=== PATIENT | male | born 1930 | race Caucasian/White ===

== ENCOUNTER 2017-01-11 18:21 | Inpatient (IN) | payer MEDICAID, MEDICARE ==
[~2017-01-11] VITALS: Ht 182.9 cm; Wt 80.3 kg
[~2017-01-11 18:21] MED LIST: ACET650T11 PO; ALBU2.5V13 HHN; ALLO100T PO; ASCO500C16 PO; ASPI81TA31 PO; BENZ1LOZ PO; BISA10SU8 RC; BLOO-125 IN; CHOL10005 PO; COLC0.6T2 PO; DIGO125T PO; DOCU-25 PO; FENT1PAT4 TP; FOLI1TAB16 PO; GABA400C PO; INSU100V7 SQ; LIDO30AD10 TD; MAGN400T6 PO; MEGE400O PO; MULT1TAB11 PO; OXYC-128 PO; OXYC1TAB PO; PANT40TA2 PO; POLY15DR27 EACHEYE; PROBIOTIC1 EACH PO; RIVA20TA PO; SIMV40TA5 PO; ZOLP5TAB2 PO
--- NOTE | 2017-01-11 19:00 | NUR ---
Pt bib for abnormal labs, pt is awake, oriented x 1 (to name only), pt is confused, non ambulatory, incontinent of bladder and bowel... no respt distress noted or reported upon assessment... md at bedside..
[2017-01-11 19:19] LABS: BASOPHILS % (AUTO) 0.3 % (0.0-2.0); EOSINOPHILS # (AUTO) 0.2 K/uL (0.0-0.7); EOSINOPHILS % (AUTO) 2.3 % (0.0-7.0); LYMPHOCYTES # (AUTO) 1.6 K/UL (0.8-4.8); LYMPHOCYTES % (AUTO) 15.9 % (20.5-51.5); MEAN CORPUSCULAR HGB CONC 32 g/dL (32.0-37.0); MEAN CORPUSCULAR VOLUME 75.6 FL (82.0-92.0); MONOCYTES # (AUTO) 0.8 K/UL (0.1-1.30); NEUTROPHILS # (AUTO) 7.2 K/UL (1.8-8.9); NEUTROPHILS % (AUTO) 73.5 % (38.5-71.5); PLATELET COUNT (AUTO) 308 K/UL (150-450); RED BLOOD CELL COUNT(AUTO) 2.86 MIL/UL (4.7-6.1); WHITE BLOOD COUNT (AUTO) 9.8 K/UL (4.0-11.2)
[2017-01-11 19:24] LABS: HEMATOCRIT 21.6 % (40-50)
[2017-01-11 19:25] LABS: HEMOGLOBIN 6.9 G/DL (14.0-18.0)
[2017-01-11] MEDS ORDERED: CRAN500C3 PO (19:29)
[2017-01-11] MEDS ORDERED: RIVA15TA2 PO (19:29)
[2017-01-11] MEDS ORDERED: DULO20CA PO (19:29)
[2017-01-11] MEDS ORDERED: ATOR10TA PO (19:29)
[2017-01-11] MEDS ORDERED: MULT1TAB11 PO (19:29)
[2017-01-11] MEDS ORDERED: LACT10SO6 PO (19:29)
[2017-01-11] MEDS ORDERED: FURO-151 PO (19:29)
[2017-01-11] MEDS ORDERED: AMIN30LI27 PO (19:29)
[2017-01-11] MEDS ORDERED: CARV6.252 PO (19:29)
[2017-01-11] MEDS ORDERED: TRAM50TA2 PO (19:29)
[2017-01-11] MEDS ORDERED: IPRA0.2S6 NEB (19:29)
[2017-01-11] MEDS ORDERED: FERR-58 PO (19:29)
[2017-01-11] MEDS ORDERED: OXYC-128 PO (19:29)
[2017-01-11 19:39] LABS: ALANINE AMINOTRANSFERASE 29 U/L (16-63); ALKALINE PHOSPHATASE 98 U/L (50-136); ASPARTATE AMINOTRANSFERASE 36 U/L (15-37); BILIRUBIN,DIRECT 0.1 mg/dL (0.0-0.2); BILIRUBIN,TOTAL 0.4 mg/dL (0.2-1.0); CARBON DIOXIDE 33 mmol/L (21-32); CHLORIDE 103 mmol/L (98-107); CREATININE 1.1 mg/dL (0.6-1.3); GLUCOSE 107 mg/dL (74-106); POTASSIUM 4.4 mmol/L (3.5-5.1); TOTAL PROTEIN, SERUM 6.4 g/dL (6.4-8.2); UREA NITROGEN, BLOOD 48 mg/dL (7-18)
[2017-01-11] MEDS ORDERED: FUROSEMIDE 20 MG/2 ML VIAL IV ONE (20:00)
[2017-01-11 20:31] LABS: EOSINOPHILS % (MANUAL) 1 % (0-8); LYMPHOCYTES % (MANUAL) 17 % (20-40); MONOCYTES % (MANUAL) 6 % (2-10); NEUTROPHILS % (MANUAL) 76 % (42-75)
--- NOTE | 2017-01-11 20:47 | NUR ---
[facility] operator (tonja) Dr. Pretty Shankar to be paged...
--- NOTE | 2017-01-11 21:28 | NUR ---
2nd call to [facility], engineering operator states cell phone going straight to v/m, states will have DR. Hedrick paged 2nd time...
[2017-01-11] MEDS ORDERED: FUROSEMIDE 40 MG/4 ML VIAL ONE (22:14)
[2017-01-11 22:15] VITALS: BP 102/58
--- NOTE | 2017-01-11 22:19 | NUR ---
received call from Kimberly with [facility], requesting status, advised pt being admitted for CHF...
--- NOTE | 2017-01-11 22:20 | NUR ---
Pt. admitted to Telemetry , under care of Dr. Shankar, Belongs List completed, pt is awake, confused, oriented x 1(name only), pt transferred via gurney... no resp distress noted or reported upon transfer assessment...
--- NOTE | 2017-01-11 23:20 | NUR ---
In from ER via [facility], 86 y/o male patient w/ admitting diagnosis of CHF (BNP= 7,448) & Anemia (H/H 6.9 & 21.6). Placed on Telemetry, V-pacing on the monitor. Vital signs are WNL. Initial assessment done. Called Dr. Shankar for admission order received orders & carried out. NPO including meds for now, for further eval in AM. Will continue to monitor.
[2017-01-12] VITALS (16 sets, daily range): BP systolic 100–141; BP diastolic 52–61
[2017-01-12] MEDS ORDERED: FUROSEMIDE 20 MG/2 ML VIAL ONE ×2 (00:35→00:37)
--- NOTE | 2017-01-12 00:40 | NUR ---
1st unit of PRBC started. Monitored for transfusion reaction but none noted. Patient resting comfortably. V-paced on the monitor w/ HR 83.
[2017-01-12] MEDS: FUROSEMIDE 20 MG/2 ML VIAL IV PRN ×2 (02:26→06:42)
[2017-01-12] MEDS: Z GUARD REMEDY PASTE 57 GM TUBE TOP SCH ×2 (02:30→20:56)
--- NOTE | 2017-01-12 02:59 | NUR ---
Patient remains awake at this time. 1st unit PRBC completed. vital signs are WNL. No significant change.
--- NOTE | 2017-01-12 03:02 | NUR ---
Lasix 20 mg IVP adm
--- NOTE | 2017-01-12 03:34 | NUR ---
2nd unit PRBC started. Patient more awake at this time.
--- NOTE | 2017-01-12 06:47 | NUR ---
2 units PRBC completed. Lasix 20mg IVP adm. as ordered. Tele V-paced w/ HR 78. No acute resp distress.
--- NOTE | 2017-01-12 07:30 | NUR ---
Seen by Dr. Mariee. Putting comp. orders at this time.
[2017-01-12] MEDS ORDERED: IPRATROPIUM BROMIDE 0.5 MG/2.5 ML NEBU NEB PRN (07:45)
[2017-01-12] MEDS: ATORVASTATIN 10 MG TABLET PO SCH ×2 (07:45→20:57)
[2017-01-12] MEDS ORDERED: BISACODYL 10 MG SUPP.RECT RC PRN (07:45)
[2017-01-12] MEDS ORDERED: ALBUTEROL SULFATE 2.5 MG/ 0.5 ML NEBU INH PRN (07:45)
[2017-01-12] MEDS ORDERED: BLOOD SUGAR DIAGNOSTIC 1 EACH STRIP VI SCH (07:45)
[2017-01-12] MEDS ORDERED: DEXTROSE 50% 50 ML DISP.SYRIN IV PRN (08:00)
[2017-01-12] MEDS: INSULIN DETEMIR 300 UNIT/3 ML CARTRIDGE SQ SCH (08:10)
[2017-01-12] MEDS ORDERED: LACTULOSE 20 G/30 ML LIQUID UDC PO PRN (08:30)
[2017-01-12] MEDS ORDERED: ASPIRIN 81 MG TAB.CHEW PO SCH (09:00)
[2017-01-12] MEDS: CARVEDILOL 6.25 MG TABLET PO SCH ×2 (09:00→19:06)
[2017-01-12] MEDS: DULOXETINE 20 MG CAPSULE.DR PO SCH (09:00)
[2017-01-12] MEDS: MAGNESIUM OXIDE 400 MG TABLET PO SCH (09:00)
[2017-01-12] MEDS: DOCUSATE SODIUM 100 MG CAPSULE PO SCH ×2 (09:00→19:04)
[2017-01-12] MEDS: GABAPENTIN 400 MG CAPSULE PO SCH ×3 (09:00→19:06)
[2017-01-12] MEDS: PANTOPRAZOLE SODIUM 40 MG TABLET.DR PO SCH (09:00)
[2017-01-12] MEDS: FERROUS SULFATE 325 MG TABEC PO SCH ×3 (09:00→19:06)
[2017-01-12] MEDS: FOLIC ACID 1 MG TABLET PO SCH (09:00)
[2017-01-12] MEDS: FUROSEMIDE 40 MG TABLET PO SCH ×2 (09:00→13:54)
[2017-01-12] MEDS ORDERED: PANTOPRAZOLE SODIUM 40 MG VIAL IV SCH (09:00)
[2017-01-12 09:04] LABS: BASOPHILS % (AUTO) 0.3 % (0.0-2.0); EOSINOPHILS # (AUTO) 0.2 K/uL (0.0-0.7); EOSINOPHILS % (AUTO) 1.7 % (0.0-7.0); HEMATOCRIT 32.4 % (40-50); HEMOGLOBIN 10.4 G/DL (14.0-18.0); LYMPHOCYTES # (AUTO) 1.8 K/UL (0.8-4.8); MEAN CORPUSCULAR HEMOGLOBIN 24.7 UUG (27.0-31.0); MEAN CORPUSCULAR HGB CONC 32 g/dL (32.0-37.0); MEAN CORPUSCULAR VOLUME 77.2 FL (82.0-92.0); MONOCYTES % (AUTO) 8.1 % (0.0-11.0); NEUTROPHILS # (AUTO) 9.6 K/UL (1.8-8.9); NEUTROPHILS % (AUTO) 75.9 % (38.5-71.5); PLATELET COUNT (AUTO) 303 K/UL (150-450); WHITE BLOOD COUNT (AUTO) 12.6 K/UL (4.0-11.2)
--- NOTE | 2017-01-12 09:30 | NUR ---
LAB CALLED--BS=46. PT. EASILY AROUSABLE--OJ WITH SUGAR GIVEN. DR. RATLIFF HERE AND NOTIFIED OF ABOVE. RECHECK DONE 0945=51. NOTIFIED, ADDITIONAL JUICE GIVEN. RECHECK DONE=76. RECHECK ANTU=518. DR. RATLIFF NOTIFIED
[2017-01-12 09:44] LABS: ALANINE AMINOTRANSFERASE 27 U/L (16-63); ALKALINE PHOSPHATASE 100 U/L (50-136); ASPARTATE AMINOTRANSFERASE 43 U/L (15-37); BILIRUBIN,TOTAL 1.4 mg/dL (0.2-1.0); CARBON DIOXIDE 35 mmol/L (21-32); CHLORIDE 103 mmol/L (98-107); CREATININE 1.1 mg/dL (0.6-1.3); MAGNESIUM 2.2 mg/dL (1.8-2.4); PHOSPHOROUS 4.2 mg/dL (2.5-4.9); POTASSIUM 4.6 mmol/L (3.5-5.1); TOTAL PROTEIN, SERUM 6.7 g/dL (6.4-8.2); UREA NITROGEN, BLOOD 45 mg/dL (7-18)
[2017-01-12 10:07] LABS: GLUCOSE 46 mg/dL (74-106)
[2017-01-12 10:30] LABS: BAND % (MANUAL) 3 % (0-10); EOSINOPHILS % (MANUAL) 3 % (0-8); LYMPHOCYTES % (MANUAL) 12 % (20-40); MONOCYTES % (MANUAL) 10 % (2-10); NEUTROPHILS % (MANUAL) 72 % (42-75)
[2017-01-12] MEDS: BLOOD SUGAR DIAGNOSTIC 1 EACH STRIP VI SCH ×3 (11:00→21:08)
--- NOTE | 2017-01-12 12:51 | NUR ---
WOUND CARE CONSULT: PT PRESENTS WITH RT AND LEFT MEDIAL FOOT STAGE II ULCERS, PRESENT ON ADMISSION. PT INCONTINENT AND NOTED TO HAVE HUGE STOOL. SPECIMEN SENT TO LAB BY RN. PT NOTED TO HAVE 2+ PITTING EDEMA TO FEET/ANKLE AREAS AND SCROTAL EDEMA NOTED. 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 MARY SCORE IS 12. FIRST STEP MATTRESS TO BE PLACED. PT TO BE TURNED AND REPOSITIONED EVERY 2 HRS PT CONDITION PERMITS, HEELS FLOATED. ALL SKIN PROTECTION AND WOUND RECOMMENDATIONS DISCUSSED WITH NURSING STAFF. WILL SEE PRN. RODRIGUEZ IN AGREEMENT WITH PLAN OF CARE. Addendum: 01/12/17 at 1254 by DILLAN RAY RN Amended: Links added.
[2017-01-12] MEDS: LIDOCAINE 5% PATCH TD SCH (13:53)
[2017-01-12] MEDS: DIGOXIN 125 MCG TABLET PO SCH (13:57)
[2017-01-12 17:22] LABS: *BILIRUBIN,URIN NEGATIVE (NEGATIVE); *BLOOD, URINE 2+ (NEGATIVE); *CLARITY,URINE CLOUDY (CLEAR); *COLOR,URINE YELLOW (YELLOW); *KETONES,URINE NEGATIVE (NEGATIVE); *PROTEIN,URINE TRACE (NEGATIVE); *UROBILINOGEN,URINE 0.2 E.U./dl (NORMAL); LEUKOCYTE ESTERASE ,URINE 3+ (NEGATIVE); NITRITE, URINE NEGATIVE (NEGATIVE); PH,URINE 5.5 (5.0-8.0); UGLUCOSE NEGATIVE (NEGATIVE)
[2017-01-12 17:23] LABS: *OCCULT BLOOD STOOL POSITIVE (NEGATIVE)
[2017-01-12 17:30] LABS: BACTERIA,URINE MA /HPF (NONE SEEN); SQUAMOUS EPITHELIAL CELL,UR FEW /HPF (NONE SEEN); WBC,URINE TNTC /HPF (0-3)
[2017-01-12] MEDS: FUROSEMIDE 20 MG/2 ML VIAL IV SCH (20:56)
[2017-01-12] MEDS: TRAMADOL HCL 50 MG TABLET PO PRN (20:57)
[2017-01-13 00:13] VITALS: BP 102/63
[2017-01-13 00:25] LABS: FERRITIN 26 ng/mL (26-388)
[2017-01-13 04:00] VITALS: BP 125/62
--- NOTE | 2017-01-13 04:00 | NUR ---
Continuos to urinate a lot, incontinence care provided, kept comfortable. Wound care PRN done.
[2017-01-13] MEDS: PANTOPRAZOLE SODIUM 40 MG TABLET.DR PO SCH (05:47)
[2017-01-13] MEDS: BLOOD SUGAR DIAGNOSTIC 1 EACH STRIP VI SCH ×4 (06:55→20:27)
[2017-01-13 06:58] LABS: BASOPHILS % (AUTO) 0.2 % (0.0-2.0); EOSINOPHILS # (AUTO) 0.3 K/uL (0.0-0.7); EOSINOPHILS % (AUTO) 2.5 % (0.0-7.0); HEMATOCRIT 33.3 % (40-50); HEMOGLOBIN 10.7 G/DL (14.0-18.0); LYMPHOCYTES # (AUTO) 1.7 K/UL (0.8-4.8); LYMPHOCYTES % (AUTO) 12.9 % (20.5-51.5); MEAN CORPUSCULAR HEMOGLOBIN 24.8 UUG (27.0-31.0); MEAN CORPUSCULAR HGB CONC 32 g/dL (32.0-37.0); MEAN CORPUSCULAR VOLUME 77.2 FL (82.0-92.0); MONOCYTES % (AUTO) 7.5 % (0.0-11.0); NEUTROPHILS # (AUTO) 9.9 K/UL (1.8-8.9); NEUTROPHILS % (AUTO) 76.9 % (38.5-71.5); PLATELET COUNT (AUTO) 308 K/UL (150-450); RED BLOOD CELL COUNT(AUTO) 4.31 MIL/UL (4.7-6.1); WHITE BLOOD COUNT (AUTO) 12.9 K/UL (4.0-11.2)
--- NOTE | 2017-01-13 06:59 | NUR ---
Patient rested well & awake at this time. Morning accucheck showed 50. Patient is asymptomatic, responsive verbally. On strict fluid intake for CHF issues. Half cup Newcomb juice provided followed by D50 1 amp adm IVP. Re-checked blood sugar accu check- shows 185. Will continue to monitor.
--- NOTE | 2017-01-13 07:03 | NUR ---
Patient watching TV at this time. Telemetry V-paced on the monitor.
[2017-01-13 07:17] LABS: MAGNESIUM 2.1 mg/dL (1.8-2.4)
[2017-01-13] MEDS: INSULIN DETEMIR 300 UNIT/3 ML CARTRIDGE SQ SCH (08:00)
--- NOTE | 2017-01-13 08:00 | NUR ---
AWAKE COOPERATE WELL NO RESPIRATORY DISTRESS CONTINUER O2 AT 2-3 LITER/MIN O2 SAT WAS 96% NO PAIN ON FALL /ASPIRATION PRECAUTION BED ALARM ON AND CALL CRUZ IN REACH
[2017-01-13] MEDS: MAGNESIUM OXIDE 400 MG TABLET PO SCH (08:24)
[2017-01-13] MEDS: FERROUS SULFATE 325 MG TABEC PO SCH ×3 (08:24→17:26)
[2017-01-13] MEDS: DULOXETINE 20 MG CAPSULE.DR PO SCH (08:24)
[2017-01-13] MEDS: FUROSEMIDE 20 MG/2 ML VIAL IV SCH (08:24)
[2017-01-13] MEDS: DOCUSATE SODIUM 100 MG CAPSULE PO SCH ×2 (08:24→17:26)
[2017-01-13] MEDS: GABAPENTIN 400 MG CAPSULE PO SCH ×3 (08:24→17:26)
[2017-01-13] MEDS: Z GUARD REMEDY PASTE 57 GM TUBE TOP SCH ×2 (08:25→20:28)
[2017-01-13] MEDS: FOLIC ACID 1 MG TABLET PO SCH (08:26)
[2017-01-13] MEDS: CARVEDILOL 6.25 MG TABLET PO SCH ×2 (08:31→17:00)
[2017-01-13] MEDS: LIDOCAINE 5% PATCH TD SCH (08:31)
[2017-01-13 10:08] LABS: BAND % (MANUAL) 5 % (0-10); EOSINOPHILS % (MANUAL) 1 % (0-8); LYMPHOCYTES % (MANUAL) 12 % (20-40); MONOCYTES % (MANUAL) 4 % (2-10); NEUTROPHILS % (MANUAL) 78 % (42-75)
[2017-01-13] MEDS: OXYCODONE/APAP 5-325 MG TABLET PO PRN (10:46)
[2017-01-13] MEDS: INSULIN REGULAR, HUMAN 300 UNIT/3 ML VIAL SQ PRN ×2 (12:02→20:27)
[2017-01-13 12:08] VITALS: BP 120/64
[2017-01-13] MEDS: DIGOXIN 125 MCG TABLET PO SCH (12:48)
--- NOTE | 2017-01-13 13:00 | NUR ---
DR RATLIFF WAS NOTIFY LAB RESULT OF NARE SWAB WAS POSITIVE MRSA AND URINE C&S WAS GM NEGATIVE KALPESH AND NEW ORDER IN CHART AND PUT PATIENT ON ISOLATION PER PROTOCOL
[2017-01-13] MEDS ORDERED: CEFTRIAXONE 1 G VIAL IM SCH (13:45)
[2017-01-13] MEDS: CEFTRIAXONE 1 G in IV DEXTROSE 5% 50 ML IV SCH (14:14)
[2017-01-13] MEDS: TRAMADOL HCL 50 MG TABLET PO PRN (14:28)
[2017-01-13 15:32] VITALS: BP 98/50
--- NOTE | 2017-01-13 18:00 | NUR ---
HEMODYNAMIC STATUS STABLE PAIN UNDER CONTROL SAFETY MEASURE PROVIDED BED ALARM ON AND CALL CRUZ IN REACH
[2017-01-13 19:00] VITALS: BP 109/59
[2017-01-13] MEDS: ATORVASTATIN 10 MG TABLET PO SCH (20:28)
[2017-01-13] MEDS: MUPIROCIN 2% OINT 22 GM TUBE NS SCH (20:28)
[2017-01-13] MEDS ORDERED: MUPIROCIN 2% OINT 22 GM TUBE NS SCH (21:00)
[2017-01-14] MEDS: OXYCODONE/APAP 5-325 MG TABLET PO PRN (03:53)
--- NOTE | 2017-01-14 03:55 | NUR ---
PATIENT AWAKE IN BED, A/O X2. MOANING. PATIENT STATED, "I DON'T FEEL GOOD." PATIENT ASKED FOR BLOOD SUGAR TO BE CHECKED, 120. PATIENT ASKED FOR PAIN MEDICATION AND WHEN APPROACHED WITH PERCOCET 1 TAB, PATIENT REFUSED AND SAID, "I FEEL NAUSEOUS, I DO NOT WANT IT." MEDICATION WASTED WITH RN. WILL CONTINUE TO MONITOR.
[2017-01-14] MEDS: BLOOD SUGAR DIAGNOSTIC 1 EACH STRIP VI SCH ×5 (03:58→21:05)
[2017-01-14 04:00] VITALS: BP 102/52
--- NOTE | 2017-01-14 04:05 | NUR ---
CALLED OUT TO DR. RATLIFF FOR ZOFRAN ORDERS. WAITING FOR CALL BACK.
--- NOTE | 2017-01-14 04:35 | NUR ---
NO RESPONSE. CALLED OUT TO EXCHANGE AGAIN. WAITING FOR DR. RATLIFF TO CALL BACK.
--- NOTE | 2017-01-14 04:40 | NUR ---
RECEIVED ORDER FOR PATIENT TO RECEIVE ZOFRAN 4MG IV PRN EVERY 6 HOURS. ALL NEEDS ATTENDED.
[2017-01-14] MEDS ORDERED: ONDANSETRON 4 MG/2 ML VIAL IV PRN (04:45)
[2017-01-14] MEDS ORDERED: ONDANSETRON 4 MG/2 ML VIAL ONE (04:50)
--- NOTE | 2017-01-14 04:50 | NUR ---
PATIENT GIVEN ZOFRAN 4MG IV PER PORT TRAFFIC MANAGER. WILL CONTINUE TO MONITOR.
[2017-01-14] MEDS: PANTOPRAZOLE SODIUM 40 MG TABLET.DR PO SCH (06:10)
--- NOTE | 2017-01-14 06:38 | NUR ---
PATIENT ASLEEP IN BED. VSS. RECHECKED BLOOD SUGAR, 199. NO RESP. DISTRESS NOTED. CALL LIGHT IN REACH. BED ALARM ON. ALL NEEDS ATTENDED. WILL CONTINUE TO MONITOR.
[2017-01-14] MEDS: INSULIN DETEMIR 300 UNIT/3 ML CARTRIDGE SQ SCH (08:00)
--- NOTE | 2017-01-14 08:00 | NUR ---
SLEEP AT THIS TIME NO PAIN OR SOB ON ASPIRATION /FALL PRECAUTION BED ALARM ON AND CALL CRUZ IN REACH ,CONTINUE O2 AT 2L
[2017-01-14] MEDS ORDERED: FUROSEMIDE 20 MG/2 ML VIAL IV SCH (09:00)
[2017-01-14] MEDS: CARVEDILOL 6.25 MG TABLET PO SCH ×2 (09:00→16:40)
[2017-01-14] MEDS: LIDOCAINE 5% PATCH TD SCH (10:00)
--- NOTE | 2017-01-14 10:00 | NUR ---
AWAKE EAT BREAKFAST SMALL AMT STILL SLEEP ON AND OFF CLOSED OBSERVATION INSULIN LEVEMIR WAS HOLD ONLY GIVE S/S HUMULIN INSULIN AND DR RATLIFF WILL INFORM
[2017-01-14] MEDS: MUPIROCIN 2% OINT 22 GM TUBE NS SCH ×2 (10:01→21:02)
[2017-01-14] MEDS: FOLIC ACID 1 MG TABLET PO SCH (10:02)
[2017-01-14] MEDS: FERROUS SULFATE 325 MG TABEC PO SCH ×3 (10:02→16:40)
[2017-01-14] MEDS: DOCUSATE SODIUM 100 MG CAPSULE PO SCH ×2 (10:02→16:40)
[2017-01-14] MEDS: GABAPENTIN 400 MG CAPSULE PO SCH ×3 (10:02→16:40)
[2017-01-14] MEDS: DULOXETINE 20 MG CAPSULE.DR PO SCH (10:02)
[2017-01-14] MEDS: MAGNESIUM OXIDE 400 MG TABLET PO SCH (10:02)
[2017-01-14] MEDS: Z GUARD REMEDY PASTE 57 GM TUBE TOP SCH ×2 (10:03→21:03)
[2017-01-14] MEDS: INSULIN REGULAR, HUMAN 300 UNIT/3 ML VIAL SQ PRN ×4 (10:37→21:11)
[2017-01-14] MEDS: CEFTRIAXONE 1 G in IV DEXTROSE 5% 50 ML IV SCH (10:46)
--- NOTE | 2017-01-14 11:00 | NUR ---
DR RATLIFF HERE SEE PATIENT ,CONDITION INFORM NEW ORDER IN CHART
[2017-01-14 11:39] VITALS: BP 97/48
[2017-01-14] MEDS: DIGOXIN 125 MCG TABLET PO SCH (13:03)
[2017-01-14 15:25] VITALS: BP 106/58
--- NOTE | 2017-01-14 18:00 | NUR ---
RESTING QUIET TODAY STABLE CONDITION NO RESPIRATORY DISTRESS ,PAIN UNDER CONTROL SAFETY MEASURE PROVIDED BED ALARM ON AND CALL LIGHT WITHIN REACH
[2017-01-14 20:00] VITALS: BP 104/51
--- NOTE | 2017-01-14 20:00 | NUR ---
RECEIVED PT ASLEEP AT THIS TIME, WITH EVEN AND UNLABORED BREATHING. NO ACUTE DISTRESS NOTED. NO S/S OF PAIN OR UNEASINESS OBSERVED. ON ASPIRATION /FALL PRECAUTIONS, OBSERVED. CALL LIGHT IN REACH AND SAFETY MEASURES IN PLACE. WILL CONTINUE TO MONITOR.
--- NOTE | 2017-01-14 20:40 | NUR ---
PATIENT SEEN BY GI DOCTOR TIKA, WITH NO FURTHER ORDERS. WILL CONTINUE TO MONITOR.
[2017-01-14] MEDS: ATORVASTATIN 10 MG TABLET PO SCH (21:02)
[2017-01-15] VITALS (11 sets, daily range): BP systolic 99–107; BP diastolic 51–62
[2017-01-15] MEDS: PANTOPRAZOLE SODIUM 40 MG TABLET.DR PO SCH (06:19)
[2017-01-15] MEDS: BLOOD SUGAR DIAGNOSTIC 1 EACH STRIP VI SCH ×4 (06:26→20:25)
--- NOTE | 2017-01-15 06:53 | NUR ---
PT SLEPT WELL. NO ACUTE DISTRESS NOTED PER SHIFT. NO S/S OF RESPIRATORY DISTRESS OBSERVED. ON O2 2L VIA NC, O2 SAT WNL. VS STABLE. AFEBRILE. ALL SAFETY NEEDS MET. WILL ENDORSE PERTINENT INFO AND PLAN OF CARE TO INCOMING NURSE.
[2017-01-15 07:38] LABS: BASOPHILS # (AUTO) 0.2 K/uL (0.0-8.0); BASOPHILS % (AUTO) 1.7 % (0.0-2.0); EOSINOPHILS # (AUTO) 0.3 K/uL (0.0-0.7); EOSINOPHILS % (AUTO) 2.6 % (0.0-7.0); HEMATOCRIT 31.8 % (40-50); HEMOGLOBIN 9.9 G/DL (14.0-18.0); LYMPHOCYTES # (AUTO) 2.2 K/UL (0.8-4.8); LYMPHOCYTES % (AUTO) 20.2 % (20.5-51.5); MEAN CORPUSCULAR HEMOGLOBIN 24.4 UUG (27.0-31.0); MEAN CORPUSCULAR HGB CONC 31 g/dL (32.0-37.0); MEAN CORPUSCULAR VOLUME 78.2 FL (82.0-92.0); MONOCYTES # (AUTO) 0.9 K/UL (0.1-1.30); MONOCYTES % (AUTO) 7.8 % (0.0-11.0); NEUTROPHILS # (AUTO) 7.3 K/UL (1.8-8.9); NEUTROPHILS % (AUTO) 67.7 % (38.5-71.5); RED BLOOD CELL COUNT(AUTO) 4.07 MIL/UL (4.7-6.1); WHITE BLOOD COUNT (AUTO) 10.9 K/UL (4.0-11.2)
[2017-01-15 08:03] LABS: PLATELET COUNT (AUTO) 183 K/UL (150-450)
[2017-01-15 08:10] LABS: ALANINE AMINOTRANSFERASE 20 U/L (16-63); ALKALINE PHOSPHATASE 132 U/L (50-136); ASPARTATE AMINOTRANSFERASE 40 U/L (15-37); BILIRUBIN,TOTAL 0.5 mg/dL (0.2-1.0); CARBON DIOXIDE 35 mmol/L (21-32); CHLORIDE 96 mmol/L (98-107); CREATININE 1.6 mg/dL (0.6-1.3); GLUCOSE 110 mg/dL (74-106); MAGNESIUM 2.4 mg/dL (1.8-2.4); PHOSPHOROUS 5.1 mg/dL (2.5-4.9); POTASSIUM 5.7 mmol/L (3.5-5.1); TOTAL PROTEIN, SERUM 7.1 g/dL (6.4-8.2); UREA NITROGEN, BLOOD 43 mg/dL (7-18)
[2017-01-15] MEDS ORDERED: SODIUM POLYSTYRENE SULFONATE 15 G/60 ML LIQUID UDC PO ONE (08:30)
--- NOTE | 2017-01-15 08:30 | NUR ---
AWAKE WHEN TOUCH OR CALL NO SOB OR PAIN VS STABLE EAT BREAKFAST MOD AMT CONTINUE O2 AT 2L O2 SAT WAS 95% ON ASPIRATION /FALL PRECAUTION CALL BEL IN REACH AND BED ALARM ON
[2017-01-15] MEDS: FOLIC ACID 1 MG TABLET PO SCH (08:33)
[2017-01-15] MEDS: LIDOCAINE 5% PATCH TD SCH (08:33)
[2017-01-15] MEDS: GABAPENTIN 400 MG CAPSULE PO SCH ×3 (08:33→17:01)
[2017-01-15] MEDS: ASPIRIN 81 MG TAB.CHEW PO SCH (08:33)
[2017-01-15] MEDS: MUPIROCIN 2% OINT 22 GM TUBE NS SCH ×2 (08:33→20:20)
[2017-01-15] MEDS: DOCUSATE SODIUM 100 MG CAPSULE PO SCH ×2 (08:33→17:01)
[2017-01-15] MEDS: FERROUS SULFATE 325 MG TABEC PO SCH ×3 (08:33→17:01)
[2017-01-15] MEDS: DULOXETINE 20 MG CAPSULE.DR PO SCH ×2 (08:33→09:00)
[2017-01-15] MEDS: Z GUARD REMEDY PASTE 57 GM TUBE TOP SCH ×2 (08:34→20:21)
[2017-01-15] MEDS: CARVEDILOL 6.25 MG TABLET PO SCH ×2 (08:34→17:00)
[2017-01-15 08:35] LABS: NEUTROPHILS % (MANUAL) 67 % (42-75)
[2017-01-15 08:36] LABS: EOSINOPHILS % (MANUAL) 3 % (0-8); LYMPHOCYTES % (MANUAL) 24 % (20-40); MONOCYTES % (MANUAL) 6 % (2-10)
[2017-01-15] MEDS: CEFTRIAXONE 1 G in IV DEXTROSE 5% 50 ML IV SCH (08:50)
[2017-01-15] MEDS: MAGNESIUM OXIDE 400 MG TABLET PO SCH (08:50)
[2017-01-15] MEDS: INSULIN DETEMIR 300 UNIT/3 ML CARTRIDGE SQ SCH (09:00)
[2017-01-15] MEDS ORDERED: FUROSEMIDE 20 MG TABLET PO SCH (09:00)
--- NOTE | 2017-01-15 09:30 | NUR ---
DR RATLIFF SEE PATIENT AND LAB RESULT THIS AM INFORM NEW ORDER IN CHART
[2017-01-15] MEDS ORDERED: CEFT1VIA15 IV (10:38)
[2017-01-15] MEDS: DIGOXIN 125 MCG TABLET PO SCH (12:35)
[2017-01-15] MEDS: INSULIN REGULAR, HUMAN 300 UNIT/3 ML VIAL SQ PRN ×3 (12:37→20:29)
--- NOTE | 2017-01-15 13:15 | NUR ---
FOUND PATIENT WAS DEEP SLEEP DOES NOT RESPONSE TO STIMULATION VS TAKEN STABLE SEE VS FLOW SHEET BUT STILL UNABLE TO WAKE HIM RAPID UP RAPID RESPONSE WAS PAGE AND CLOSE OBSERVATION
--- NOTE | 2017-01-15 13:19 | NUR ---
Discharge: The patient's discharge plan is to return to the [facility] [[address] ; [address] [place] [address] room [address]] once medically cleared. Spoke to rehan Méndez from the [facility], who confirmed that they will take the patient back today.
--- NOTE | 2017-01-15 13:20 | NUR ---
RAPID RESPONSE AT BEDSIDE SHAKING PATIENT HARDER THEN HE IS OPEN EYE AND RESPONSE TO VOICE /STIMULATION VS TAKEN STABLE KEP ON O2 MASK BECAUSE HE WAS OPEN MOUTH BREATHING AND CLOSED MONITORING
[2017-01-15 13:33] LABS: *BILIRUBIN,URIN NEGATIVE (NEGATIVE); *BLOOD, URINE 1+ (NEGATIVE); *CLARITY,URINE SLIGHTLY CLOUDY (CLEAR); *COLOR,URINE YELLOW (YELLOW); *KETONES,URINE NEGATIVE (NEGATIVE); *PROTEIN,URINE NEGATIVE (NEGATIVE); *UROBILINOGEN,URINE 0.2 E.U./dl (NORMAL); LEUKOCYTE ESTERASE ,URINE 2+ (NEGATIVE); NITRITE, URINE NEGATIVE (NEGATIVE); PH,URINE 5.5 (5.0-8.0); UGLUCOSE NEGATIVE (NEGATIVE)
--- NOTE | 2017-01-15 13:35 | NUR ---
ASSIST FEED LUNCH LOWELL MOD AMT [address] RATLIFF WAS CALL AND MESSAGE LEFT REGARDING HIS CONDITION CHANGE
[2017-01-15 13:43] LABS: *CREATININE,URINE 41.7 mg/dL (30-125); *URINE TOTAL PROTEIN RANDOM 23.8 mg/dL (<150/24HR)
[2017-01-15 13:51] LABS: WBC,URINE 50-80 /HPF (0-3)
[2017-01-15 13:52] LABS: BACTERIA,URINE FEW /HPF (NONE SEEN); SQUAMOUS EPITHELIAL CELL,UR FEW /HPF (NONE SEEN)
--- NOTE | 2017-01-15 14:00 | NUR ---
DR RATLIFF CALL BACK PATIENT CONDITION INFORM AND URINE RESULT TODAY NOTIFY ORDER TO HOLD DISCHARGE TODAY
--- NOTE | 2017-01-15 15:00 | NUR ---
FAMILY MR JOHNATHON REINA WAS CALL AND INFORM OF PATIENT CONDITION WAS CHANGE STATE HE WAS AWARE AND WANT HIM TO BE DISCHARGE BACK TO [facility] AND HAVE HOSPIES CARE FOR COMFORT ONLY
--- NOTE | 2017-01-15 17:30 | NUR ---
ASSIST TO EAT DINNER 50% OF TRAY NO PAIN OR SOB VS STABLE AWAKE WHEN CALL OR STIMULATE HIM OTHERWISE HE WAS BACK TO SLEEP
--- NOTE | 2017-01-15 18:00 | NUR ---
SLEEP MOST OF THE DAY TODAY VS STABLE SAFETY MEASURE PROVIDED ON ASPIRATION AND FALL PRECAUTION BED ALARM ON AND CALL LIGHT WITHIN REACH CLOSED OBSERVATION
--- NOTE | 2017-01-15 19:45 | NUR ---
PT RECEIVED IN BED, ASLEEP, AND COMFORTABLE. V/S STABLE. NO SIGNS OF ACUTE DISTRESS. SAFETY MEASURE INITIATED. CALL LIGHT WITHIN REACH. WILL CONTINUE TO MONITOR.
[2017-01-15] MEDS: ATORVASTATIN 10 MG TABLET PO SCH (20:20)
[2017-01-16 06:14] VITALS: BP 105/55
[2017-01-16] MEDS: PANTOPRAZOLE SODIUM 40 MG TABLET.DR PO SCH (06:24)
[2017-01-16] MEDS: BLOOD SUGAR DIAGNOSTIC 1 EACH STRIP VI SCH ×2 (06:28→11:41)
[2017-01-16 06:45] LABS: BASOPHILS % (AUTO) 0.5 % (0.0-2.0); EOSINOPHILS # (AUTO) 0.2 K/uL (0.0-0.7); EOSINOPHILS % (AUTO) 2.8 % (0.0-7.0); HEMATOCRIT 28.8 % (40-50); HEMOGLOBIN 9.3 G/DL (14.0-18.0); LYMPHOCYTES # (AUTO) 1.3 K/UL (0.8-4.8); LYMPHOCYTES % (AUTO) 14.6 % (20.5-51.5); MEAN CORPUSCULAR HEMOGLOBIN 25.4 UUG (27.0-31.0); MEAN CORPUSCULAR HGB CONC 32 g/dL (32.0-37.0); MEAN CORPUSCULAR VOLUME 78.9 FL (82.0-92.0); MONOCYTES # (AUTO) 0.8 K/UL (0.1-1.30); MONOCYTES % (AUTO) 9.3 % (0.0-11.0); NEUTROPHILS # (AUTO) 6.6 K/UL (1.8-8.9); NEUTROPHILS % (AUTO) 72.8 % (38.5-71.5); PLATELET COUNT (AUTO) 195 K/UL (150-450); RED BLOOD CELL COUNT(AUTO) 3.65 MIL/UL (4.7-6.1); WHITE BLOOD COUNT (AUTO) 8.9 K/UL (4.0-11.2)
--- NOTE | 2017-01-16 06:52 | NUR ---
END OF SHIFT NOTES. PT SLEPT WELL THROUGHOUT SHIFT. V/S STABLE. NO SIGNS OF ACUTE DISTRESS. NEEDS ATTENDED. SAFETY MAINTAINED.
[2017-01-16 06:58] LABS: ALANINE AMINOTRANSFERASE 19 U/L (16-63); ALKALINE PHOSPHATASE 103 U/L (50-136); ASPARTATE AMINOTRANSFERASE 37 U/L (15-37); BILIRUBIN,TOTAL 0.4 mg/dL (0.2-1.0); CARBON DIOXIDE 38 mmol/L (21-32); CHLORIDE 98 mmol/L (98-107); CREATINE KINASE, TOTAL 13 U/L (39-308); CREATININE 1.3 mg/dL (0.6-1.3); GLUCOSE 87 mg/dL (74-106); MAGNESIUM 2.3 mg/dL (1.8-2.4); PHOSPHOROUS 3.8 mg/dL (2.5-4.9); POTASSIUM 3.8 mmol/L (3.5-5.1); TOTAL PROTEIN, SERUM 6.3 g/dL (6.4-8.2); UREA NITROGEN, BLOOD 39 mg/dL (7-18)
[2017-01-16] MEDS: FOLIC ACID 1 MG TABLET PO SCH (08:12)
[2017-01-16] MEDS: MUPIROCIN 2% OINT 22 GM TUBE NS SCH (08:12)
[2017-01-16] MEDS: LIDOCAINE 5% PATCH TD SCH (08:12)
[2017-01-16] MEDS: Z GUARD REMEDY PASTE 57 GM TUBE TOP SCH (08:13)
[2017-01-16] MEDS: FERROUS SULFATE 325 MG TABEC PO SCH ×2 (08:13→12:17)
[2017-01-16] MEDS: DOCUSATE SODIUM 100 MG CAPSULE PO SCH (08:13)
[2017-01-16] MEDS: ASPIRIN 81 MG TAB.CHEW PO SCH (08:13)
[2017-01-16] MEDS: CARVEDILOL 6.25 MG TABLET PO SCH (08:13)
[2017-01-16] MEDS: MAGNESIUM OXIDE 400 MG TABLET PO SCH (08:13)
[2017-01-16] MEDS: GABAPENTIN 400 MG CAPSULE PO SCH ×2 (08:13→12:17)
[2017-01-16] MEDS: DULOXETINE 20 MG CAPSULE.DR PO SCH (08:13)
[2017-01-16] MEDS: INSULIN DETEMIR 300 UNIT/3 ML CARTRIDGE SQ SCH (08:54)
[2017-01-16] MEDS: CEFTRIAXONE 1 G in IV DEXTROSE 5% 50 ML IV SCH (08:56)
[2017-01-16] MEDS: INSULIN REGULAR, HUMAN 300 UNIT/3 ML VIAL SQ PRN (11:44)
[2017-01-16 11:57] VITALS: BP 106/54
[2017-01-16] MEDS: DIGOXIN 125 MCG TABLET PO SCH (12:19)
--- NOTE | 2017-01-16 13:43 | NUR ---
ALL SAFETY AND COMFORT MEASURES MAINTAINED, PT LATEST BS 155, COVERED WITH 2 UNITS INSULIN. PT ATE LUNCH AND IS AWAITING AMBULANCE ARRIVAL, DISCHARGE PROTOCOL FOLLOWED, PICTURES TAKEN AND PLACED IN CHART. IV INTACT, PER DOCTOR WILL RECEIVE ABX AT SNF. ALL BELONGINGS ACCOUNTED AND PACKED UP. REPORT CALLED TO MARLENE.
--- NOTE | 2017-01-16 14:15 | NUR ---
pt left via gurney with ambulance staff all belongings sent with pt.
[2017-01-17 07:07] LABS: A/G RATIO 0.8 (0.7-1.7); ALBUMIN 2.6 g/dL (2.9-4.4); ALPHA-1-GLOBULIN 0.3 g/dL (0.0-0.4); ALPHA-2-GLOBULIN 0.6 g/dL (0.4-1.0); BETA GLOBULIN 0.9 g/dL (0.7-1.3); GAMMA GLOBULIN 1.4 g/dL (0.4-1.8); GLOBULIN, TOTAL 3.1 g/dL (2.2-3.9); M-SPIKE Not Observed g/dL (Not Observed)
== END 2017-01-16 14:15 | DRG 291 ==
LOC: ER 18:21 → TELE 22:04 → MED 01-13 16:20
PROVIDERS: ADMIT Internal Medicine; ATTEND Internal Medicine
PROC: 30233N1 Transfusion of Nonautologous Red Blood Cells into Peripheral Vein, Percutaneous Approach (ICD-10-PCS; principal; 2017-01-12)
DX: I13.0 Hypertensive heart and chronic kidney disease with heart failure and stage 1 through stage 4 chronic kidney disease, or unspecified chronic kidney disease (principal); N17.0 Acute kidney failure with tubular necrosis; I50.43 Acute on chronic combined systolic (congestive) and diastolic (congestive) heart failure; D62 Acute posthemorrhagic anemia; N39.0 Urinary tract infection, site not specified; N14.1 Nephropathy induced by other drugs, medicaments and biological substances; T50.2X5A Adverse effect of carbonic-anhydrase inhibitors, benzothiadiazides and other diuretics, initial encounter; Y92.9 Unspecified place or not applicable; I25.10 Atherosclerotic heart disease of native coronary artery without angina pectoris; E11.22 Type 2 diabetes mellitus with diabetic chronic kidney disease; N18.3 Chronic kidney disease, stage 3 (moderate); E87.5 Hyperkalemia; E78.5 Hyperlipidemia, unspecified; E11.42 Type 2 diabetes mellitus with diabetic polyneuropathy; F03.90 Unspecified dementia, unspecified severity, without behavioral disturbance, psychotic disturbance, mood disturbance, and anxiety; B96.20 Unspecified Escherichia coli [E. coli] as the cause of diseases classified elsewhere; Z95.1 Presence of aortocoronary bypass graft; Z95.0 Presence of cardiac pacemaker; Z79.899 Other long term (current) drug therapy; I48.2 Chronic atrial fibrillation; Z79.01 Long term (current) use of anticoagulants; Z88.0 Allergy status to penicillin; Z88.2 Allergy status to sulfonamides; Z79.4 Long term (current) use of insulin; Z66 Do not resuscitate; Z22.322 Carrier or suspected carrier of Methicillin resistant Staphylococcus aureus; Z87.440 Personal history of urinary (tract) infections; M48.00 Spinal stenosis, site unspecified; I08.2 Rheumatic disorders of both aortic and tricuspid valves; M10.9 Gout, unspecified; K21.9 Gastro-esophageal reflux disease without esophagitis; F31.9 Bipolar disorder, unspecified; Z79.82 Long term (current) use of aspirin; I42.9 Cardiomyopathy, unspecified
CPT/HCPCS: 36415; 70030-TC; 71010; 76770; 82746; 83550; 83605; 83735; 83970; 84100; 84155; 84156; 84165; 84300; 85025; 85730; 86850; 86900; 86901; 86920; 87040; 87077; 87086; 93005; 93307; A4663; C1758; J0696; J1815; J1940; J2405; J3490; J7040; J7050; J7060; P9016-BL; P9021